=== PATIENT | male | born 1975 | race Caucasian/White ===

== ENCOUNTER 2016-09-03 13:07 | Emergency (ER) | payer OTHER ==
[~2016-09-03] VITALS: Ht 170.2 cm; Wt 72.6 kg
--- NOTE | 2016-09-03 13:20 | NUR ---
PT BIB [facility] FOR BIZARRE BEHAVIOR. A/OX3. ADMITS TO METH USE. VSS. DENIES PAIN. PT APPEARS FIDGETY AND ANXIOUS, CONTINUES TO ACT BIZARRE. ABLE TO ANSWER QUESTIONS AFTER REPEATED ASKING. IN ER BED 12 ON MONITOR.
[2016-09-03] MEDS ORDERED: HALOPERIDOL LACTATE INJ 5 MG/ML VIAL ONE (13:21)
[2016-09-03] MEDS ORDERED: diphenhydrAMINE HCL 50 MG/ML VIAL ONE (13:21)
[2016-09-03] MEDS ORDERED: LORAZEPAM INJ 2 MG/ML VIAL ONE (13:22)
--- NOTE | 2016-09-03 13:29 | NUR ---
DISK SANDER AT BEDSIDE
[2016-09-03] MEDS ORDERED: HALOPERIDOL LACTATE INJ 5 MG/ML VIAL IM ONE (13:30)
[2016-09-03] MEDS ORDERED: LORAZEPAM INJ 2 MG/ML VIAL IM ONE (13:30)
[2016-09-03] MEDS ORDERED: diphenhydrAMINE HCL 50 MG/ML VIAL IM ONE (13:30)
[2016-09-03 13:34] LABS: BASOPHILS % (AUTO) 0.5 % (0.0-2.0); EOSINOPHILS % (AUTO) 0.6 % (0.0-6.0); HEMATOCRIT 40 % (39-51); HEMOGLOBIN 13.2 g/dL (13.5-17.5); LYMPHOCYTES # (AUTO) 1.2 /CMM (0.8-4.8); LYMPHOCYTES % (AUTO) 16.9 % (20.0-44.0); MEAN CORPUSCULAR HEMOGLOBIN 29 PG (26.0-33.0); MEAN CORPUSCULAR HGB CONC 33 g/dl (31.0-36.0); MEAN CORPUSCULAR VOLUME 86 fL (80-96); MONOCYTES # (AUTO) 0.8 /CMM (0.1-1.30); MONOCYTES % (AUTO) 11.6 % (2.0-12.0); NEUTROPHILS # (AUTO) 5.1 /CMM (1.8-8.9); NEUTROPHILS % (AUTO) 70.4 % (43.0-81.0); PLATELET COUNT (AUTO) 211 /CMM (150-450); RED BLOOD CELL COUNT(AUTO) 4.63 MIL/uL (4.5-6.0); WHITE BLOOD COUNT (AUTO) 7.1 K/uL (4.3-11.0)
[2016-09-03 13:43] LABS: CALCIUM, SERUM 9.4 mg/dL (8.5-10.1); CARBON DIOXIDE 27 mmol/L (21-32); CHLORIDE 105 mmol/L (98-107); CREATININE 1.1 mg/dL (0.6-1.3); GLUCOSE 112 mg/dL (74-106); POTASSIUM 3.9 mmol/L (3.5-5.1); SODIUM SERUM 140 mmol/L (136-145); UREA NITROGEN, BLOOD 11 mg/dL (7-18)
[2016-09-03 13:49] LABS: ALANINE AMINOTRANSFERASE 22 U/L (12-78); ALCOHOL, BLOOD < 3 mg/dL (0-0); ALKALINE PHOSPHATASE 75 U/L (46-116); ASPARTATE AMINOTRANSFERASE 24 U/L (15-37); BILIRUBIN,DIRECT 0.2 mg/dL (0.0-0.2); BILIRUBIN,TOTAL 0.9 mg/dL (0.2-1.0); TOTAL PROTEIN, SERUM 7.1 g/dL (6.4-8.2)
[2016-09-03 13:50] LABS: ACETAMINOPHEN 0 ug/ml (10-30); SALICYLATE < 2.8 mg/dL (2.8-20.0)
--- NOTE | 2016-09-03 15:00 | NUR ---
RESTING QUIETLY, NAD NOTED. ALL NEEDS ATTENDED TO.
--- NOTE | 2016-09-03 17:51 | NUR ---
Patient is resting comfortably in bed with eyes closed. Easily aroused. VSS
--- NOTE | 2016-09-03 21:15 | NUR ---
Patient is resting comfortably in bed with eyes closed. Easily aroused. VSS
--- NOTE | 2016-09-03 23:40 | NUR ---
Patient is resting comfortably in bed with eyes closed. Easily aroused. VSS.
--- NOTE | 2016-09-04 01:30 | NUR ---
PT SLEEPING COMFORTABLY SUPINE ON BED. AWAKENS TO NAME THEN RETURNS TO SLEEP. VSS, NAD NOTED. WILL CONT TO MONITOR
[2016-09-04 03:20] VITALS: BP 105/61
== END 2016-09-04 11:20 | disposition home or self-care (01) ==
LOC: ER 13:10
DX: F15.129 Other stimulant abuse with intoxication, unspecified (principal); F32.9 Major depressive disorder, single episode, unspecified
CPT/HCPCS: 36415; 80048; 80076; 80329; 85025; 96372 ×3; 99284; A4606; G0480 ×2; J1200; J1630; J2060; Z7610

== ENCOUNTER 2018-04-09 16:35 | Emergency (ER) | payer MEDICAID, OTHER ==
[~2018-04-09] VITALS: Ht 172.7 cm; Wt 74.8 kg
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
[2018-04-09] MEDS ORDERED: ACETAMINOPHEN ES 500 MG TABLET ONE (17:07)
--- NOTE | 2018-04-09 17:09 | NUR ---
PT IN RADIOLOGY FOR CT
[2018-04-09] MEDS ORDERED: ACETAMINOPHEN 325 MG TABLET PO ONE (17:30)
--- NOTE | 2018-04-09 18:14 | NUR ---
Patient is resting comfortably in bed with eyes closed. Easily aroused. VSS
--- NOTE | 2018-04-09 19:14 | NUR ---
CARTOGRAPHIC TECHNICIAN AT BEDSIDE FOR WOUND CARE
--- NOTE | 2018-04-09 19:19 | NUR ---
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
--- NOTE | 2018-04-09 19:23 | NUR ---
OFFERED HOMELESS RESOURCES, PT REFUSED. HOMELESS WAIVER SIGNED AND PLACED IN CHART.
--- NOTE | 2018-04-09 19:37 | NUR ---
Patient discharged to home in stable condition. Written and verbal after care instructions given. Patient verbalizes understanding of instruction.
[2018-04-09 19:38] VITALS: BP 131/87
== END 2018-04-09 19:40 | disposition home or self-care (01) ==
LOC: ER 16:38
DX: S02.2XXA Fracture of nasal bones, initial encounter for closed fracture (principal); R51 Headache; F32.9 Major depressive disorder, single episode, unspecified; Y04.2XXA Assault by strike against or bumped into by another person, initial encounter; Y93.89 Activity, other specified; Y92.89 Other specified places as the place of occurrence of the external cause; Y99.8 Other external cause status
CPT/HCPCS: 70450-TC; 70486-TC; 72125-TC; A6403

== ENCOUNTER 2018-05-04 14:53 | Inpatient (IN) | payer MEDICAID ==
[~2018-05-04] VITALS: Ht 175.3 cm; Wt 64.9 kg
[2018-05-04 15:27] LABS: BASOPHILS % (AUTO) 0.5 % (0.0-2.0); EOSINOPHILS % (AUTO) 0.2 % (0.0-6.0); HEMATOCRIT 38 % (39-51); HEMOGLOBIN 13.2 g/dL (13.5-17.5); LYMPHOCYTES # (AUTO) 1.4 /CMM (0.8-4.8); LYMPHOCYTES % (AUTO) 16.9 % (20.0-44.0); MEAN CORPUSCULAR HGB CONC 35 g/dl (31.0-36.0); MEAN CORPUSCULAR VOLUME 87 fL (80-96); MONOCYTES # (AUTO) 0.8 /CMM (0.1-1.30); MONOCYTES % (AUTO) 10.1 % (2.0-12.0); NEUTROPHILS # (AUTO) 5.9 /CMM (1.8-8.9); NEUTROPHILS % (AUTO) 72.3 % (43.0-81.0); PLATELET COUNT (AUTO) 208 /CMM (150-450); RED BLOOD CELL COUNT(AUTO) 4.38 MIL/uL (4.5-6.0); WHITE BLOOD COUNT (AUTO) 8.2 K/uL (4.3-11.0)
[2018-05-04] MEDS ORDERED: IV NS 0.9% 1,000 ML BAG IV ONE ×2 (15:30→19:30)
[2018-05-04 15:37] LABS: CALCIUM, SERUM 9.3 mg/dL (8.5-10.1); CARBON DIOXIDE 27 mmol/L (21-32); CHLORIDE 107 mmol/L (98-107); CREATININE 1.4 mg/dL (0.6-1.3); GLUCOSE 94 mg/dL (74-106); SODIUM SERUM 143 mmol/L (136-145); UREA NITROGEN, BLOOD 34 mg/dL (7-18)
[2018-05-04 15:50] LABS: ALANINE AMINOTRANSFERASE 56 U/L (12-78); ALKALINE PHOSPHATASE 86 U/L (46-116); ASPARTATE AMINOTRANSFERASE 106 U/L (15-37); BILIRUBIN,DIRECT 0.3 mg/dL (0.0-0.2); BILIRUBIN,TOTAL 1.5 mg/dL (0.2-1.0)
[2018-05-04 15:51] LABS: ACETAMINOPHEN 0 ug/ml (10-30); ALCOHOL, BLOOD 1 mg/dL (0-0); SALICYLATE < 0.2 mg/dL (2.8-20.0); TOTAL PROTEIN, SERUM 7.2 g/dL (6.4-8.2)
[2018-05-04 16:31] LABS: APPEARANCE,URINE Cloudy (CLEAR); BILIRUBIN,URINE Negative (NEGATIVE); BLOOD, URINE Large Ery/uL (NEGATIVE); COLOR,URINE Amber (YELLOW); KETONES,URINE 80 (NEGATIVE); LEUKOCYTE ESTERASE ,URINE Negative (NEGATIVE); NITRITE, URINE Negative (NEGATIVE); PH,URINE 5.5 (5.0-8.0); PROTEIN,URINE 100 mg/dl (NEGATIVE); UGLUCOSE Negative (NEGATIVE); UROBILINOGEN,URINE 0.2 EU/dL (0.2)
[2018-05-04 17:01] LABS: BACTERIA,URINE Rare /HPF (None Seen); RBC,URINE 81-100 /HPF (0-2); SQUAMOUS EPITHELIAL CELL,UR Few /HPF (None Seen); WBC,URINE 0-2 /HPF (0-3)
[2018-05-04] MEDS ORDERED: LORAZEPAM INJ 2 MG/ML VIAL ONE (20:19)
[2018-05-04] MEDS ORDERED: LORAZEPAM INJ 2 MG/ML VIAL IV ONE (20:30)
[2018-05-04] MEDS ORDERED: ACETAMINOPHEN 325 MG TABLET PO PRN (22:00)
[2018-05-04] MEDS ORDERED: HYDROCODONE/APAP 5/325MG 1 EACH TABLET PO PRN (22:00)
[2018-05-04] MEDS ORDERED: ONDANSETRON HCL/PF 4 MG/2 ML VIAL IVP PRN (22:00)
[2018-05-04] MEDS ORDERED: MAGNESIUM HYDROXIDE 30 ML UDC PO PRN (22:00)
[2018-05-04] MEDS ORDERED: ZOLPIDEM TARTRATE 5 MG TABLET PO PRN (22:00)
[2018-05-04] MEDS ORDERED: Z GUARD REMEDY 2 OZ OINT TP PRN (22:00)
[2018-05-04] MEDS: IV NS 0.9% 1,000 ML IV PRN (22:24)
[2018-05-04 23:26] VITALS: BP 135/78
[2018-05-04] MEDS ORDERED: LORAZEPAM INJ 2 MG/ML VIAL IV PRN (23:30)
[2018-05-05 04:00] VITALS: BP 123/70
[2018-05-05] MEDS: IV NS 0.9% 1,000 ML IV PRN (06:03)
[2018-05-05 07:01] LABS: BASOPHILS % (AUTO) 0.9 % (0.0-2.0); EOSINOPHILS % (AUTO) 2.1 % (0.0-6.0); HEMATOCRIT 36 % (39-51); HEMOGLOBIN 12.4 g/dL (13.5-17.5); LYMPHOCYTES # (AUTO) 1.2 /CMM (0.8-4.8); MEAN CORPUSCULAR HGB CONC 35 g/dl (31.0-36.0); MEAN CORPUSCULAR VOLUME 87 fL (80-96); MONOCYTES # (AUTO) 0.5 /CMM (0.1-1.30); MONOCYTES % (AUTO) 9.5 % (2.0-12.0); NEUTROPHILS % (AUTO) 62.5 % (43.0-81.0); PLATELET COUNT (AUTO) 164 /CMM (150-450); RED BLOOD CELL COUNT(AUTO) 4.12 MIL/uL (4.5-6.0); WHITE BLOOD COUNT (AUTO) 4.8 K/uL (4.3-11.0)
[2018-05-05 07:16] LABS: CALCIUM, SERUM 8.3 mg/dL (8.5-10.1); MAGNESIUM 2.1 mg/dL (1.8-2.4); PHOSPHORUS 3.7 mg/dL (2.5-4.9); POTASSIUM 3.7 mmol/L (3.5-5.1)
[2018-05-05] MEDS ORDERED: FOLIC ACID 1 MG TABLET PO SCH (09:00)
== END 2018-05-05 08:35 | disposition left against medical advice (07) | DRG 469 ==
LOC: ER 15:06 → MEDSG1 20:28
PROVIDERS: ADMIT Nurse Practitioner Acute Care; ATTEND Student in an Organized Health Care Education/Training Program
DX: N17.9 Acute kidney failure, unspecified (principal); G92 Toxic encephalopathy; M62.82 Rhabdomyolysis; I12.0 Hypertensive chronic kidney disease with stage 5 chronic kidney disease or end stage renal disease; N18.9 Chronic kidney disease, unspecified; D63.8 Anemia in other chronic diseases classified elsewhere; F15.10 Other stimulant abuse, uncomplicated; F13.10 Sedative, hypnotic or anxiolytic abuse, uncomplicated; R74.0 Nonspecific elevation of levels of transaminase and lactic acid dehydrogenase [LDH]; F10.20 Alcohol dependence, uncomplicated; Y90.0 Blood alcohol level of less than 20 mg/100 ml
CPT/HCPCS: 36415; 71045-TC; 80048-TC; 80061-TC; 80076-TC; 80305; 81000-TC; 82550-TC; 83735-TC; 84100-TC; 85025-TC; 87081-TC; G0378; G0480; J2060; J7030

== ENCOUNTER 2018-06-22 17:23 | Emergency (ER) | payer MEDICAID ==
[~2018-06-22] VITALS: Ht 170.2 cm; Wt 72.6 kg
[2018-06-22] MEDS ORDERED: CEPHALEXIN MONOHYDRATE 500 MG CAPSULE PO ONE ×2 (18:13→18:30)
[2018-06-23] MEDS ORDERED: CEPHALEXIN MONOHYDRATE 500 MG CAPSULE PO ONE ×2 (01:03→05:57)
[2018-06-23] MEDS: CEPHALEXIN MONOHYDRATE 500 MG CAPSULE PO SCH ×2 (01:06→05:59)
[2018-06-23 08:09] VITALS: BP 125/70
== END 2018-06-23 08:11 | disposition home or self-care (01) ==
LOC: ER 17:28
DX: S90.812A Abrasion, left foot, initial encounter (principal); S90.811A Abrasion, right foot, initial encounter; L08.9 Local infection of the skin and subcutaneous tissue, unspecified; Z59.0 Homelessness; X58.XXXA Exposure to other specified factors, initial encounter; Y93.89 Activity, other specified; Y92.89 Other specified places as the place of occurrence of the external cause; Y99.8 Other external cause status

== ENCOUNTER 2018-08-27 16:24 | Emergency (ER) | payer MEDICAID ==
[~2018-08-27] VITALS: Ht 162.6 cm; Wt 59.9 kg
--- NOTE | 2018-08-27 16:30 | NUR ---
PT CECILIO FROM [place] [facility]RE[facility] FOR BIZARRE BEHAVIOR; PT TO BED 15, PT ON MONITOR, -SOB, NAD NOTED, PENDING MD SENIOR
[2018-08-27] MEDS ORDERED: OLANZAPINE 10 MG VIAL IM ONE ×2 (16:34→17:00)
--- NOTE | 2018-08-27 16:45 | NUR ---
URINE COLLECTED AND SENT TO LAB
[2018-08-27] MEDS ORDERED: IV NS 0.9% 1,000 ML BAG IV ONE (17:00)
[2018-08-27 17:05] LABS: BASOPHILS # (AUTO) 0.1 /CMM (0.0-0.2); BASOPHILS % (AUTO) 0.6 % (0.0-2.0); EOSINOPHILS % (AUTO) 0.2 % (0.0-6.0); HEMATOCRIT 40 % (39-51); HEMOGLOBIN 13.8 g/dL (13.5-17.5); LYMPHOCYTES # (AUTO) 1.6 /CMM (0.8-4.8); LYMPHOCYTES % (AUTO) 13.5 % (20.0-44.0); MEAN CORPUSCULAR HGB CONC 35 g/dl (31.0-36.0); MEAN CORPUSCULAR VOLUME 87 fL (80-96); MONOCYTES # (AUTO) 1.1 /CMM (0.1-1.30); MONOCYTES % (AUTO) 8.8 % (2.0-12.0); NEUTROPHILS # (AUTO) 9.3 /CMM (1.8-8.9); NEUTROPHILS % (AUTO) 76.9 % (43.0-81.0); PLATELET COUNT (AUTO) 228 /CMM (150-450); RED BLOOD CELL COUNT(AUTO) 4.56 MIL/uL (4.5-6.0); WHITE BLOOD COUNT (AUTO) 12.1 K/uL (4.3-11.0)
[2018-08-27 17:14] LABS: APPEARANCE,URINE Slightly Cloudy (CLEAR); BILIRUBIN,URINE Negative (NEGATIVE); BLOOD, URINE Moderate Ery/uL (NEGATIVE); COLOR,URINE Yellow (YELLOW); KETONES,URINE Negative (NEGATIVE); LEUKOCYTE ESTERASE ,URINE Negative (NEGATIVE); NITRITE, URINE Negative (NEGATIVE); PH,URINE 5.5 (5.0-8.0); PROTEIN,URINE 100 mg/dl (NEGATIVE); UGLUCOSE Negative (NEGATIVE); UROBILINOGEN,URINE 0.2 EU/dL (0.2)
[2018-08-27 17:16] LABS: CALCIUM, SERUM 9.2 mg/dL (8.5-10.1); CARBON DIOXIDE 25 mmol/L (21-32); CHLORIDE 110 mmol/L (98-107); CREATININE 1.3 mg/dL (0.6-1.3); GLUCOSE 94 mg/dL (74-106); POTASSIUM 3.9 mmol/L (3.5-5.1); SODIUM SERUM 146 mmol/L (136-145); UREA NITROGEN, BLOOD 28 mg/dL (7-18)
[2018-08-27 17:22] LABS: ALANINE AMINOTRANSFERASE 32 U/L (12-78); ALBUMIN 4.3 g/dL (3.4-5.0); ALCOHOL, BLOOD < 3 mg/dL (0-0); ALKALINE PHOSPHATASE 77 U/L (46-116); ASPARTATE AMINOTRANSFERASE 47 U/L (15-37); BILIRUBIN,DIRECT 0.2 mg/dL (0.0-0.2); BILIRUBIN,TOTAL 2.2 mg/dL (0.2-1.0); TOTAL PROTEIN, SERUM 7.6 g/dL (6.4-8.2)
[2018-08-27 17:24] LABS: ACETAMINOPHEN < 2 ug/ml (10-30); SALICYLATE < 3.0 mg/dL (2.8-20.0)
[2018-08-27 17:28] LABS: BACTERIA,URINE Few /HPF (None Seen); SQUAMOUS EPITHELIAL CELL,UR Few /HPF (None Seen)
[2018-08-27 17:29] LABS: WBC,URINE 0-2 /HPF (0-3)
[2018-08-27 19:00] LABS: EOSINOPHILS % (MANUAL) 1 % (0-4); LYMPHOCYTES % (MANUAL) 14 % (16-48); MONOCYTES % (MANUAL) 8 % (0-11.0); NEUTROPHILS % (MANUAL) 77 (42-76)
--- NOTE | 2018-08-27 19:45 | NUR ---
RECEIVED REPORT FROM DELMA COSTELLO FOR GIOVANNI.
--- NOTE | 2018-08-27 20:00 | NUR ---
DR. DRAKE AWARE OF PT BP, NO NEW ORDERS AT THIS TIME, PT APPEARS COMFORTABLE AT THIS TIME.
--- NOTE | 2018-08-28 00:13 | NUR ---
PT AOX4, PT DENIES SI/ HI AT THIS TIME. , VICTORINO AWARE
--- NOTE | 2018-08-28 00:46 | NUR ---
ATTEMPTED TO ROAD TEST PT, PT REFUSED TO AMBULATE AT THIS TIME STATES "I CANT MOVE" HOWEVER IS MOVING ALL UPPER AND LOWER EXTEMETIES WHILE LAYING IN BED. DR. GLEASON MADE AWARE. RN ANER AT BEDSIDE WITNESS.
--- NOTE | 2018-08-28 00:50 | NUR ---
IV removed. Catheter intact and site benign. Pressure and 4x4 applied to site. No bleeding noted.
--- NOTE | 2018-08-28 01:20 | NUR ---
SAFETY ASSOCIATE ART AT BEDSIDE FOR EVAL
--- NOTE | 2018-08-28 01:46 | NUR ---
PT REFUSED HOMELESS RESOURCES AND REFUSED TO SIGN HOMELESS PAPERS PER [employer] ARRANGEMENT SPECIALIST ART.
[2018-08-28 05:28] VITALS: BP 143/75
--- NOTE | 2018-08-28 05:29 | NUR ---
Patient discharged to home in stable condition. Written and verbal after care instructions given. Patient verbalizes understanding of instruction.IV removed. Catheter intact and site benign. Pressure and 4x4 applied to site. No bleeding noted. Pt ambulatory with a steady gait
--- NOTE | 2018-08-28 05:30 | NUR ---
Pt reufused to sign the homeless waiver.
== END 2018-08-28 05:30 | disposition home or self-care (01) ==
LOC: ER 16:28
DX: F15.10 Other stimulant abuse, uncomplicated (principal); R79.89 Other specified abnormal findings of blood chemistry; R41.82 Altered mental status, unspecified; F29 Unspecified psychosis not due to a substance or known physiological condition; R45.1 Restlessness and agitation; R00.0 Tachycardia, unspecified; Z59.0 Homelessness; Z04.6 Encounter for general psychiatric examination, requested by authority
CPT/HCPCS: 36415; 80048; 80076; 80307; 80329; 81001; 85025; 93005; 96360; 96372; 99284; J3490; 80305; 81000-TC; G0480

== ENCOUNTER 2018-09-27 07:54 | Emergency (ER) | payer MEDICAID, OTHER ==
[~2018-09-27] VITALS: Ht 170.2 cm; Wt 76.2 kg
[2018-09-27] MEDS ORDERED: IBUPROFEN 600 MG TABLET PO ONE ×2 (08:30)
--- NOTE | 2018-09-27 08:54 | NUR ---
SEEN AND EVALUATED BY ERMD. PROVIDED W/ SHOES FOOD TRAY AND CLOTHES. REFUSING RESOURCES. D/C HOME, STABLE CONDITION.
[2018-09-27 09:15] VITALS: BP 132/66
== END 2018-09-27 08:54 | disposition home or self-care (01) ==
LOC: ER 07:57
DX: M54.5 Low back pain (principal); G89.29 Other chronic pain; Z60.2 Problems related to living alone; Z59.0 Homelessness